=== PATIENT | male | born 1985 | race Hispanic/Latino ===

== ENCOUNTER 2017-07-27 14:04 | Emergency (ER) | payer OTHER, SELFPAY ==
--- NOTE | 2017-07-27 14:56 | RAD REPORT ---
EXAM DESCRIPTION: RAD - Ankle Left 3 View - 07/27/2017 2:49 pm CLINICAL HISTORY: Trauma, foot and ankle pain COMPARISON: None. FINDINGS: Soft tissue swelling is seen about the ankle, greatest laterally. A bony fragment is seen adjacent to the posterior malleolus. This may be a fracture, although age is undetermined. Correlatio n with point tenderness in this location is advised.
[2017-07-27] MEDS ORDERED: IBUPROFEN 400 MG TAB ONE (14:57)
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
[2017-07-27] MEDS ORDERED: HYDROCODONE/APAP 10/325 TAB ONE (16:14)
[2017-07-27 17:32] VITALS: TEMP 98.1; O2SAT 100
[2017-07-27 17:33] VITALS: BP 147/87
== END 2017-07-27 16:39 | disposition home or self-care (01) ==
LOC: ER 14:04
DX: S82.892A Other fracture of left lower leg, initial encounter for closed fracture (principal); V09.9XXA Pedestrian injured in unspecified transport accident, initial encounter; I10 Essential (primary) hypertension
CPT/HCPCS: 99285

== ENCOUNTER 2017-08-30 22:01 | Emergency (ER) | payer OTHER ==
[2017-08-30] MEDS ORDERED: NA CHLORIDE 0.9% 1,000 ML ONE (22:18)
[2017-08-30] MEDS ORDERED: ONDANSETRON 4 MG/2 ML VIAL ONE (22:18)
[2017-08-30 22:33] LABS: Absolute Lymphocytes (CBC) 4.7 K/uL (0.7-4.9); Absolute Monocytes 1.2 K/uL (0.1-1.3); Absolute Neutrophil 12.3 K/uL (1.8-8.0); Basophils % 0.8 % (0-1.3); Eosinophils % 2.2 % (0-4.4); Hematocrit 41.9 % (39.6-49.0); Lymphocytes % 25.1 % (15.3-44.8); MCH 29.9 pg (27.0-35.0); MCV 86.3 fL (80-100); MPV 8.7 fL (7.6-11.3); Monocytes % 6.5 % (3.3-12.3); RBC Red Blood Cell Count 4.86 M/uL (4.33-5.43)
[2017-08-30 22:43] LABS: Protime INR 1.04
[2017-08-30 22:52] LABS: Urine Blood NEGATIVE (NEG); Urine Glucose NEGATIVE (NEG); Urine Protein 2+ (NEG); Urine Specific Gravity 1.025 (1.005-1.030); Urine pH 6.5 (5.0-7.0)
[2017-08-30 22:55] LABS: ALT/SGPT 82 U/L (12-78); AST/SGOT 29 U/L (15-37); Albumin 3.7 g/dL (3.4-5.0); Alkaline Phosphatase 85 U/L (45-117); BUN Blood Urea Nitrogen 14 mg/dL (7-18); Bicarbonate 28 mmol/L (21-32); Bilirubin Direct 0.1 mg/dL (0-0.2); Bilirubin Total 0.6 mg/dL (0.2-1.0); Glucose Level 85 mg/dL (74-106); Potassium 3.3 mmol/L (3.5-5.1); Protein, Total 7.3 g/dL (6.4-8.2); Sodium Level 143 mmol/L (136-145)
[2017-08-30 22:56] LABS: Barbiturates NEGATIVE (NEGATIVE); Benzodiazepines POSITIVE (NEGATIVE); Cocaine NEGATIVE (NEGATIVE); METHAMPHETAM NEGATIVE (NEGATIVE); Methadone NEGATIVE (NEGATIVE); Opiates NEGATIVE (NEGATIVE); Phencyclidine NEGATIVE (NEGATIVE); THC Cannibis NEGATIVE (NEGATIVE)
[2017-08-30 22:56] LABS: Alcohol Serum/Plasma 8 mg/dL (0-3)
--- NOTE | 2017-08-30 23:58 | ER ---
Nurse's Notes [facility] Name: Tom Booth Age: 32 yrs Sex: Male : 1985 Arrival Date: 08/30/2017 Time: 22:02 Bed 2 Private MD: Diagnosis: Abuse of non-psychoactive substances;Vomiting;Hypokalemia Presentation: 08/30 22:03 Presenting complaint: EMS states: Mother called EMS when she was unable to wake up her tl2 son. Pt was able to tell EMS that he took two Somas at home for ankle pain. EMS gave 1 mg IV Narcan and pt started to wake up. Pt AOx3 on arrival to ER but very drowsy and sluggish. Transition of care: patient was not received from another setting of care. Onset of symptoms was August 30, 2017. Risk Assessment: Do you want to hurt yourself or someone else? Patient reports no desire to harm self or others. Initial Sepsis Screen: Does the patient meet any 2 criteria? No. Patient's initial sepsis screen is negative. Does the patient have a suspected source of infection? No. Patient's initial sepsis screen is negative. Care prior to arrival: Medication(s) given: 1 mg Narcan. 22:03 Method Of Arrival: EMS: [facility] tl2 22:03 Acuity: ALFONSO 2 tl2 Triage Assessment: 22:06 General: Appears in no apparent distress. Behavior is drowsy, listless. Pain: Complains tl2 of pain in left lateral ankle Pain does not radiate. Neuro: Level of Consciousness is obeys commands, listless, Oriented to person, place, time, speech is very sluggish. Cardiovascular: Denies chest pain. Respiratory: Airway is patent Respiratory effort is even, unlabored, Respiratory pattern is regular, symmetrical. GI: No signs and/or symptoms were reported involving the gastrointestinal system. : No signs and/or symptoms were reported regarding the genitourinary system. Derm: Skin is pink, warm \T\ dry. Historical: - Allergies: 22:06 No Known Allergies; tl2 - Home Meds: 22:06 metoprolol tartrate 100 mg Oral tab 1 tab 2 times per day [Active]; tl2 - PMHx: 22:06 Hypertension; tl2 - PSHx: 22:06 None; tl2 - Immunization history:: Adult Immunizations up to date. - Social history:: Smoking status: Patient/guardian denies using tobacco. - Ebola Screening: : No symptoms or risks identified at this time. - Family history:: not pertinent. Screenin:10 Abuse screen: Denies threats or abuse. Nutritional screening: No deficits noted. tl2 Tuberculosis screening: No symptoms or risk factors identified. Fall Risk IV access (20 points). Mental Status- Overestimates/Forgets Limitations (15 pts.). Assessment: 22:34 General: see triage assessment. tl2 23:10 Reassessment: Patient appears in no apparent distress at this time. Patient and/or tl2 family updated on plan of care and expected duration. Pain level reassessed. Patient is alert, oriented x 3, equal unlabored respirations, skin warm/dry/pink. Pt is more awake and alert. MD at bedside. 23:59 Reassessment: Patient appears in no apparent distress at this time. Patient and/or tl2 family updated on plan of care and expected duration. Pain level reassessed. Patient is alert, oriented x 3, equal unlabored respirations, skin warm/dry/pink. Vital Signs: 22:06 BP 119 / 70; Pulse 95; Resp 17; Temp 97.7(TE); Pulse Ox 94% on R/A; Weight 108.86 kg; tl2 Height 5 ft. 7 in. (170.18 cm); Pain 4/10; 22:06 Pulse Ox 97% on 2 lpm NC; tl2 23:10 BP 122 / 81; Pulse 79; Resp 19; Pulse Ox 100% on 2 lpm NC; tl2 23:58 BP 117 / 95; Pulse 76; Resp 16; Pulse Ox 100% on R/A; tl2 22:06 Body Mass Index 37.59 (108.86 kg, 170.18 cm) tl2 ED Course: 22:02 Patient arrived in ED. ds1 22:03 Nahomi Martinez RN is Primary Nurse. tl2 22:05 Triage completed. tl2 22:06 Arm band placed on right wrist. tl2 22:10 Patient has correct armband on for positive identification. Bed in low position. Call tl2 light in reach. Side rails up X2. Adult w/ patient. 22:10 Maintain EMS IV. Dressing intact. Good blood return noted. Site clean \T\ dry. Gauge \T\ tl 2 site: 18 g R AC. 22:21 Danis Vilchis MD is Attending Physician. [facility] Administered Medications: 22:19 Drug: Zofran 4 mg Route: IVP; Site: right antecubital; tl2 08/31 00:10 Follow up: Response: No adverse reaction; Nausea is decreased tl2 08/30 22:19 Drug: NS 0.9% 1000 ml Route: IV; Rate: 1 bolus; Site: right antecubital; tl2 08/31 00:07 Drug: Potassium Chloride 20 mEq Route: PO; tl2 00:10 Follow up: Response: No adverse reaction; Medication administered at discharge. tl2 Outcome: 08/30 23:57 Discharge ordered by . brayden 08/31 00:10 Patient left the ED. tl2 Signatures: Danis Vilchis MD MD cha Sanford, Demi ds1 Nahomi Martinez RN RN tl2
--- NOTE | 2017-08-30 23:58 | EDPHYS ---
Physician Documentation [facility] Name: Tom Booth Age: 32 yrs Sex: Male : 1985 Arrival Date: 08/30/2017 Time: 22:02 Bed 2 Private MD: ED Physician Danis Vilchis HPI: 08/30 23:02 This 32 yrs old Male presents to ER via EMS with complaints of Altered Mental brayden Status. 23:02 The patient presents with confusion, decreased mental status. Onset: The brayden symptoms/episode began/occurred just prior to arrival. Possible causes: drug use, soma. Associated signs and symptoms: Pertinent positives: nausea, vomiting. Patient's baseline: Neuro: alert and fully oriented. The patient has not experienced similar symptoms in the past. Historical: - Allergies: 22:06 No Known Allergies; tl2 - Home Meds: 22:06 metoprolol tartrate 100 mg Oral tab 1 tab 2 times per day [Active]; tl2 - PMHx: 22:06 Hypertension; tl2 - PSHx: 22:06 None; tl2 - Immunization history:: Adult Immunizations up to date. - Social history:: Smoking status: Patient/guardian denies using tobacco. - Ebola Screening: : No symptoms or risks identified at this time. - Family history:: not pertinent. ROS: 23:02 Constitutional: Negative for fever, chills, and weight loss, Eyes: Negative for injury, brayden pain, redness, and discharge, ENT: Negative for injury, pain, and discharge, Neck: Negative for injury, pain, and swelling, Cardiovascular: Negative for chest pain, palpitations, and edema, Respiratory: Negative for shortness of breath, cough, wheezing, and pleuritic chest pain, Back: Negative for injury and pain, : Negative for injury, bleeding, discharge, and swelling, MS/Extremity: Negative for injury and deformity, Skin: Negative for injury, rash, and discoloration, Psych: Negative for depression, anxiety, suicide ideation, homicidal ideation, and hallucinations, Allergy/Immunology: Negative for hives, rash, and allergies, Endocrine: Negative for neck swelling, polydipsia, polyuria, polyphagia, and marked weight changes, Hematologic/Lymphatic: Negative for swollen nodes, abnormal bleeding, and unusual bruising. 23:02 Abdomen/GI: Positive for nausea and vomiting. 23:02 Neuro: Positive for altered mental status, weakness. Exam: 23:02 Constitutional: This is a well developed, well nourished patient who is awake, alert, brayden and in no acute distress. Head/Face: Normocephalic, atraumatic. Eyes: Pupils equal round and reactive to light, extra-ocular motions intact. Lids and lashes normal. Conjunctiva and sclera are non-icteric and not injected. Cornea within normal limits. Periorbital areas with no swelling, redness, or edema. ENT: Nares patent. No nasal discharge, no septal abnormalities noted. Tympanic membranes are normal and external auditory canals are clear. Oropharynx with no redness, swelling, or masses, exudates, or evidence of obstruction, uvula midline. Mucous membranes moist. Neck: Trachea midline, no thyromegaly or masses palpated, and no cervical lymphadenopathy. Supple, full range of motion without nuchal rigidity, or vertebral point tenderness. No Meningismus. Chest/axilla: Normal chest wall appearance and motion. Nontender with no deformity. No lesions are appreciated. Cardiovascular: Regular rate and rhythm with a normal S1 and S2. No gallops, murmurs, or rubs. Normal PMI, no JVD. No pulse deficits. Respiratory: Lungs have equal breath sounds bilaterally, clear to auscultation and percussion. No rales, rhonchi or wheezes noted. No increased work of breathing, no retractions or nasal flaring. Abdomen/GI: Soft, non-tender, with normal bowel sounds. No distension or tympany. No guarding or rebound. No evidence of tenderness throughout. Back: No spinal tenderness. No costovertebral tenderness. Full range of motion. Male : Normal genitalia with no discharge or lesions. Skin: Warm, dry with normal turgor. Normal color with no rashes, no lesions, and no evidence of cellulitis. MS/ Extremity: Pulses equal, no cyanosis. Neurovascular intact. Full, normal range of motion. Neuro: Awake and alert, GCS 15, oriented to person, place, time, and situation. Cranial nerves II-XII grossly intact. Motor strength 5/5 in all extremities. Sensory grossly intact. Cerebellar exam normal. Normal gait. Psych: Awake, alert, with orientation to person, place and time. Behavior, mood, and affect are within normal limits. Vital Signs: 22:06 BP 119 / 70; Pulse 95; Resp 17; Temp 97.7(TE); Pulse Ox 94% on R/A; Weight 108.86 kg; tl2 Height 5 ft. 7 in. (170.18 cm); Pain 4/10; 22:06 Pulse Ox 97% on 2 lpm NC; tl2 23:10 BP 122 / 81; Pulse 79; Resp 19; Pulse Ox 100% on 2 lpm NC; tl2 23:58 BP 117 / 95; Pulse 76; Resp 16; Pulse Ox 100% on R/A; tl2 22:06 Body Mass Index 37.59 (108.86 kg, 170.18 cm) tl2 MDM: 22:[address] [facility] 23:02 Data reviewed: vital signs, nurses notes, lab test result(s), EKG. [facility] 08/30 22:17 Order name: Acetaminophen; Complete Time: 23:55 [facility] 08/30 22:17 Order name: BMP; Complete Time: 23:55 [facility] 08/30 22:17 Order name: CBC with Diff; Complete Time: 23:55 [facility] 08/30 22:17 Order name: Ethanol; Complete Time: 23:55 [facility] 08/30 22:17 Order name: Hepatic Function; Complete Time: 23:55 [facility] 08/30 22:17 Order name: Protime (+inr); Complete Time: 23:55 [facility] 08/30 22:17 Order name: Ptt, Activated; Complete Time: 23:55 [facility] 08/30 22:17 Order name: Salicylate; Complete Time: 23:55 [facility] 08/30 22:17 Order name: Urine Drug Screen; Complete Time: 23:55 [facility] 08/30 22:17 Order name: EKG; Complete Time: 22:17 [facility] 08/30 22:49 Order name: Urine Dipstick--Ancillary (enter results); Complete Time: 23:55 [place] 08/30 22:17 Order name: EKG - Nurse/Tech; Complete Time: 22:20 [facility] 08/30 22:17 Order name: IV Saline Lock; Complete Time: 22:20 2 08/30 22:17 Order name: Labs collected and sent; Complete Time: 22:20 [facility] 08/30 22:17 Order name: O2 Per Protocol; Complete Time: 22:20 tl2 08/30 22:17 Order name: O2 Sat Monitoring; Complete Time: 22:20 tl2 08/30 22:17 Order name: Urine Dipstick-Ancillary (obtain specimen); Complete Time: 22:39 tl2 Administered Medications: 22:19 Drug: Zofran 4 mg Route: IVP; Site: right antecubital; tl2 08/31 00:10 Follow up: Response: No adverse reaction; Nausea is decreased tl2 08/30 22:19 Drug: NS 0.9% 1000 ml Route: IV; Rate: 1 bolus; Site: right antecubital; tl2 08/31 00:07 Drug: Potassium Chloride 20 mEq Route: PO; tl2 00:10 Follow up: Response: No adverse reaction; Medication administered at discharge. tl2 Disposition: 08/30/17 23:57 Discharged to Home. Impression: Abuse of non-psychoactive substances, Vomiting, Hypokalemia. - Condition is Stable. - Discharge Instructions: Potassium Content of Foods, Nausea and Vomiting, Polysubstance Abuse, Nausea and Vomiting, [place], Hypokalemia. - Prescriptions for Zofran 4 mg Oral Tablet - take 1 tablet by ORAL route every 12 hours As needed; 6 tablet. - Medication Reconciliation Form, Thank You Letter, Antibiotic Education, Prescription Opioid Use, Work release form form. - Follow up: Private Physician; When: 2 - 3 days; Reason: Recheck today's complaints, Continuance of care, Re-evaluation by your physician. - Problem is new. - Symptoms have improved. Signatures: Dispatcher [employer] EDMA Danis Vilchis MD MD cha Knox, Taylor, RN RN tl2 Corrections: (The following items were deleted from the chart) 08/30 22:19 22:17 Urine Test ordered. tl2 tl2 08/31 00:10 08/30 23:57 08/30/2017 23:57 Discharged to Home. Impression: Abuse of non-psychoactive tl2 substances; Vomiting; Hypokalemia. Condition is Stable. Discharge Instructions: Nausea and Vomiting, Polysubstance Abuse, Nausea and Vomiting, Jhas-or-Xuxi. Prescriptions for Zofran 4 mg Oral Tablet - take 1 tablet by ORAL route every 12 hours As needed; 6 tablet. and Forms are Medication Reconciliation Form, Thank You Letter, Antibiotic Education, Prescription Opioid Use. Follow up: Private Physician; When: 2 - 3 days; Reason: Recheck today's complaints, Continuance of care, Re-evaluation by your physician. Problem is new. Symptoms have improved. brayden
[2017-08-31] MEDS ORDERED: POTASSIUM CL SA 10 MEQ TAB PO ONE (00:05)
[2017-08-31 00:24] VITALS: TEMP 97.7
[2017-08-31 00:25] VITALS: O2SAT 100
[2017-08-31 00:26] VITALS: BP 117/95
--- NOTE | 2017-08-31 10:01 | EKG ---
Test Date: 2017-08-30 Test Time: 22:26:11 Mirror Silverer: JOSR MEASUREMENT RESULTS: Intervals: Rate: 87 GA: 142 QRSD: 90 QT: 354 QTc: 425 [place]: P: 24 GA: 142 QRS: 9 T: -14 INTERPRETIVE STATEMENTS: Normal sinus rhythm Cannot rule out Anterior infarct, age undetermined Abnormal ECG Compared to ECG 03/29/2016 07:09:54 Myocardial infarct finding now present T-wave abnormality no longer present Possible ischemia no longer present Electronically Signed On 08-31-17 09:59:43 CDT by Ty Mcguire
== END 2017-08-31 00:10 | disposition home or self-care (01) ==
LOC: ER 22:01
DX: F55.8 Abuse of other non-psychoactive substances (principal); R11.10 Vomiting, unspecified; E87.6 Hypokalemia; I10 Essential (primary) hypertension
CPT/HCPCS: 36415; 80048; 80076; 80307; 80320; 80329; 81003; 85025; 85610; 85730; 93005; 96374; 99283; J2405; J7030

== ENCOUNTER 2018-04-16 20:05 | Emergency (ER) | payer OTHER ==
[2018-04-16] MEDS ORDERED: OSELTAMIVIR 75 MG CAP ONE (21:59)
[2018-04-16] MEDS ORDERED: AZITHROMYCIN 250 MG TAB ONE (21:59)
--- NOTE | 2018-04-16 22:07 | ER ---
Nurse's Notes [facility] Name: Tom Booth Age: 33 yrs Sex: Male : 1985 Arrival Date: 04/16/2018 Time: 20:11 Bed 5 Private MD: Diagnosis: Influenza due to other identified influenza virus Presentation: 04/16 20:44 Presenting complaint: Patient states: Pt complaining of cough, chills, nasal ea congestion, fever that started Monday. Doxycycline ordered by [facility] took first dose this AM. Transition of care: patient was not received from another setting of care. Onset of symptoms was April 16, 2018. Risk Assessment: Do you want to hurt yourself or someone else? Patient reports no desire to harm self or others. Initial Sepsis Screen: Does the patient meet any 2 criteria? HR > 90 bpm. Does the patient have a suspected source of infection? Yes: Productive cough/pneumonia. Care prior to arrival: Medication(s) given: Motrin, five hours ago. 20:44 Method Of Arrival: Ambulatory ea 20:44 Acuity: ALFONSO 4 ea Triage Assessment: 20:57 General: Appears in no apparent distress. Behavior is calm, cooperative. ak1 Historical: - Allergies: 20:47 Tylenol; ea - Home Meds: 20:47 metoprolol tartrate 100 mg Oral tab 1 tab 2 times per day [Active]; ea - PMHx: 20:47 Hypertension; ea - PSHx: 20:47 None; ea - Immunization history:: Adult Immunizations up to date. - Social history:: Smoking status: Patient/guardian denies using tobacco. - Ebola Screening: : No symptoms or risks identified at this time. - Family history:: not pertinent. Screenin:57 Abuse screen: Denies threats or abuse. Denies injuries from another. Nutritional ak1 screening: No deficits noted. Tuberculosis screening: No symptoms or risk factors identified. Fall Risk None identified. Assessment: 21:28 General: Appears in no apparent distress. Pain: Complains of pain in body aches. Neuro: ak1 No deficits noted. Cardiovascular: Rhythm is sinus tachycardia. Respiratory: Reports shortness of breath cough that is Airway is patent Breath sounds are clear. GI: No signs and/or symptoms were reported involving the gastrointestinal system. : No signs and/or symptoms were reported regarding the genitourinary system. EENT: No signs and/or symptoms were reported regarding the EENT system. Derm: Reports fever. Vital Signs: 20:48 BP 138 / 86; Pulse 140; Resp 20; Temp 99.8(O); Pulse Ox 96% ; Weight 113.4 kg; Height 5 ea ft. 7 in. (170.18 cm); Pain 7/10; 21:51 BP 99 / 60; Pulse 112; Resp 20; Temp 99.8; Pulse Ox 98% on R/A; ak1 20:48 Body Mass Index 39.16 (113.40 kg, 170.18 cm) ea ED Course: 20:11 Patient arrived in ED. am2 20:47 Triage completed. ea 20:54 Kellie Cordova, RN is Primary Nurse. ak1 20:57 Arm band placed on Patient placed in an exam room, on a stretcher, Patient notified of ak1 wait time. 20:59 Patient has correct armband on for positive identification. Bed in low position. Call ak1 light in reach. Side rails up X 1. 21:07 Chest Single View XRAY In Process Unspecified. EDMS 21:10 Farhad Amor MD is Attending Physician. ma2 21:29 Inserted saline lock: 20 gauge in right hand, using aseptic technique. ak1 22:15 No provider procedures requiring assistance completed. IV discontinued, intact, ak1 bleeding controlled, No redness/swelling at site. Pressure dressing applied. Administered Medications: 21:27 Drug: NS 0.9% 1000 ml Route: IV; Rate: 1 bolus; Site: right hand; ak1 22:14 Follow up: IV Status: Completed infusion ak1 21:50 Drug: Tamiflu 75 mg Route: PO; ak1 22:14 Follow up: Response: No adverse reaction ak1 21:51 Drug: AZITHromycin 500 mg Route: PO; ak1 22:14 Follow up: Response: No adverse reaction ak1 Outcome: 22:06 Discharge ordered by . ma2 22:15 Discharged to home ambulatory. ak1 22:15 Condition: good 22:15 Discharge instructions given to patient, Instructed on discharge instructions, follow up and referral plans. no drinking with medication, no driving heavy equipment, medication usage, Demonstrated understanding of instructions, follow-up care, medications, Prescriptions given X 2. 22:31 Patient left the ED. ak1 Signatures: Dispatcher [employer] EDMS Kellie Cordova RN RN ak1 Janell Olmedo am2 Pallavi James RN RN ea Alzahri, Mohammad, MD MD ma2 Corrections: (The following items were deleted from the chart) 20:50 20:44 Presenting complaint: Patient states: Pt complaining of cough, chills, nasal ea congestion, fever that started Monday. nannette
--- NOTE | 2018-04-16 22:07 | EDPHYS ---
Physician Documentation [facility] Name: Tom Booth Age: 33 yrs Sex: Male : 1985 Arrival Date: 04/16/2018 Time: 20:11 Bed 5 Private MD: ED Physician Farhad Amor HPI: 04/16 22:04 This 33 yrs old Male presents to ER via Ambulatory with complaints of Flu ma2 Symptoms, Fever. 22:04 Onset: The symptoms/episode began/occurred gradually, 1 day(s) ago. Associated signs ma2 and symptoms: Pertinent positives: runny nose, sinus congestion, Pertinent negatives: abdominal pain, backache, diarrhea, sinus congestion. Severity of symptoms: At their worst the symptoms were moderate in the emergency department the symptoms are unchanged. Historical: - Allergies: 20:47 Tylenol; ea - Home Meds: 20:47 metoprolol tartrate 100 mg Oral tab 1 tab 2 times per day [Active]; ea - PMHx: 20:47 Hypertension; ea - PSHx: 20:47 None; ea - Immunization history:: Adult Immunizations up to date. - Social history:: Smoking status: Patient/guardian denies using tobacco. - Ebola Screening: : No symptoms or risks identified at this time. - Family history:: not pertinent. ROS: 22:04 Neck: Negative for injury, pain, and swelling, Cardiovascular: Negative for chest pain, ma2 palpitations, and edema, Respiratory: Negative for shortness of breath, cough, wheezing, and pleuritic chest pain, Abdomen/GI: Negative for abdominal pain, nausea, diarrhea, and constipation, MS/Extremity: Negative for injury and deformity, Skin: Negative for injury, rash, and discoloration, Neuro: Negative for headache, weakness, numbness, tingling, and seizure, Psych: Negative for depression, anxiety, suicide ideation, homicidal ideation, and hallucinations. 22:04 Constitutional: Positive for body aches, chills, fatigue, fever, Negative for poor PO intake, weight loss. 22:04 All other systems are negative. Exam: 22:04 Constitutional: This is a well developed, well nourished patient who is awake, alert, ma2 and in no acute distress. Chest/axilla: Normal chest wall appearance and motion. Nontender with no deformity. No lesions are appreciated. Cardiovascular: Regular rate and rhythm with a normal S1 and S2. No gallops, murmurs, or rubs. Normal PMI, no JVD. No pulse deficits. Respiratory: Lungs have equal breath sounds bilaterally, clear to auscultation and percussion. No rales, rhonchi or wheezes noted. No increased work of breathing, no retractions or nasal flaring. Abdomen/GI: Soft, non-tender, with normal bowel sounds. No distension or tympany. No guarding or rebound. No evidence of tenderness throughout. MS/ Extremity: Pulses equal, no cyanosis. Neurovascular intact. Full, normal range of motion. Neuro: Awake and alert, GCS 15, oriented to person, place, time, and situation. Cranial nerves II-XII grossly intact. Motor strength 5/5 in all extremities. Sensory grossly intact. Cerebellar exam normal. Normal gait. Vital Signs: 20:48 BP 138 / 86; Pulse 140; Resp 20; Temp 99.8(O); Pulse Ox 96% ; Weight 113.4 kg; Height 5 ea ft. 7 in. (170.18 cm); Pain 7/10; 21:51 BP 99 / 60; Pulse 112; Resp 20; Temp 99.8; Pulse Ox 98% on R/A; ak1 20:48 Body Mass Index 39.16 (113.40 kg, 170.18 cm) ea MDM: 21:10 Patient medically screened. ma2 22:04 Differential diagnosis: viral Infection, bacterial infection, URI, UTI, ma2 gastroenteritis. Data reviewed: vital signs, nurses notes. Counseling: I had a detailed discussion with the patient and/or guardian regarding: the historical points, exam findings, and any diagnostic results supporting the discharge/admit diagnosis, the presence of at least one elevated blood pressure reading (>120/80) during this emergency department visit, the need for outpatient follow up. Response to treatment: the patient's symptoms have markedly improved after treatment. 04/16 20:50 Order name: Flu ea 04/16 20:51 Order name: Chest Single View XRAY ea Administered Medications: 21:27 Drug: NS 0.9% 1000 ml Route: IV; Rate: 1 bolus; Site: right hand; ak1 22:14 Follow up: IV Status: Completed infusion ak1 21:50 Drug: Tamiflu 75 mg Route: PO; ak1 22:14 Follow up: Response: No adverse reaction ak1 21:51 Drug: AZITHromycin 500 mg Route: PO; ak1 22:14 Follow up: Response: No adverse reaction ak1 Disposition: 04/16/18 22:06 Discharged to Home. Impression: Influenza due to other identified influenza virus. - Condition is Stable. - Discharge Instructions: Influenza, Adult. - Prescriptions for Tramadol 50 mg Oral Tablet - take 1 tablet by ORAL route every 8 hours as needed; 12 tablet. Tamiflu 75 mg Oral Capsule - take 1 tablet by ORAL route every 12 hours for 5 days; 20 tablet. - Work release form, Medication Reconciliation Form, Thank You Letter, Antibiotic Education, Prescription Opioid Use form. - Follow up: Private Physician; When: Tomorrow; Reason: Continuance of care. - Problem is new. - Symptoms are unchanged. Signatures: Dispatcher [employer] EDMS Kellie Cordova RN RN ak1 Pallavi James RN RN ea Alzahri, Mohammad, MD MD ma2 Corrections: (The following items were deleted from the chart) 22:31 22:06 04/16/2018 22:06 Discharged to Home. Impression: Influenza due to other ak1 identified influenza virus. Condition is Stable. Forms are Medication Reconciliation Form, Thank You Letter, Antibiotic Education, Prescription Opioid Use. Follow up: Private Physician; When: Tomorrow; Reason: Continuance of care. Problem is new. Symptoms are unchanged. ma2
[2018-04-16 22:44] VITALS: TEMP 99.8
[2018-04-16 22:45] VITALS: BP 99/60; O2SAT 98
--- NOTE | 2018-04-17 08:22 | RAD REPORT ---
EXAM DESCRIPTION: Mary Single View04/16/2018 9:07 pm CLINICAL HISTORY: Cough COMPARISON: October 2017 FINDINGS: The lungs appear clear of acute infiltrate. The heart is normal size IMPRESSION: No acute abnormalities displayed
== END 2018-04-16 22:31 | disposition home or self-care (01) ==
LOC: ER 20:05
DX: J10.1 Influenza due to other identified influenza virus with other respiratory manifestations (principal); I10 Essential (primary) hypertension; Z88.6 Allergy status to analgesic agent
CPT/HCPCS: 71045; 87804; 96360; 99284

== ENCOUNTER 2019-04-07 22:09 | Emergency (ER) | payer OTHER ==
--- NOTE | 2019-04-07 23:07 | EDPHYS ---
Physician Documentation [facility] Name: Tom Booth Age: 34 yrs Sex: Male : 1985 Arrival Date: 04/07/2019 Time: 22:12 Bed 24 Private MD: ED Physician Farhad Amor HPI: 04/07 23:04 This 34 yrs old Male presents to ER via Ambulatory with complaints of Fall ma2 Injury, Wrist Injury. 23:04 Onset: The symptoms/episode began/occurred suddenly, 1 hour(s) ago. Associated ma2 injuries: The patient sustained left arm. Severity of symptoms: At their worst the symptoms were mild, in the emergency department the symptoms have resolved. The patient has not experienced similar symptoms in the past. Historical: - Allergies: 22:32 Tylenol; mg2 - Home Meds: 22:32 metoprolol tartrate 100 mg Oral tab 1 tab 2 times per day [Active]; mg2 - PMHx: 22:32 Hypertension; mg2 - PSHx: 22:32 None; mg2 - Immunization history:: Flu vaccine is not up to date. - Coronavirus screen:: The patient has NOT traveled to [place] in the past 14 days. Proceed with normal triage process as indicated. - Social history:: Patient/guardian denies using The patient lives with family, Smoking status: Patient denies any tobacco usage or history of. Patient/guardian denies using alcohol, street drugs, IV drugs. - Family history:: not pertinent. - Ebola Screening: : No symptoms or risks identified at this time. ROS: 23:04 Constitutional: Negative for fever, chills, and weight loss. ma2 23:04 All other systems are negative. Exam: 23:04 Constitutional: This is a well developed, well nourished patient who is awake, alert, ma2 and in no acute distress. Chest/axilla: Normal chest wall appearance and motion. Nontender with no deformity. No lesions are appreciated. Cardiovascular: Regular rate and rhythm with a normal S1 and S2. No gallops, murmurs, or rubs. Normal PMI, no JVD. No pulse deficits. Respiratory: Lungs have equal breath sounds bilaterally, clear to auscultation and percussion. No rales, rhonchi or wheezes noted. No increased work of breathing, no retractions or nasal flaring. MS/ Extremity: Pulses equal, no cyanosis. Neurovascular intact. Full, normal range of motion. Neuro: Awake and alert, GCS 15, oriented to person, place, time, and situation. Cranial nerves II-XII grossly intact. Motor strength 5/5 in all extremities. Sensory grossly intact. Cerebellar exam normal. Normal gait. Vital Signs: 22:32 Pulse 85; Resp 18; Temp 98.6; Pulse Ox 100% on R/A; Pain 8/10; mg2 22:50 BP 150 / 102; Weight 115.67 kg; Height 5 ft. 7 in. (170.18 cm); mg2 23:11 BP 145 / 78; Pulse 90; Resp 18; Temp 98; Pulse Ox 100% on R/A; mg2 22:50 Body Mass Index 39.94 (115.67 kg, 170.18 cm) mg2 MDM: 22:22 Patient medically screened. ma2 23:04 Differential diagnosis: abrasion, fracture, multiple trauma, sprain, strain. Data ma2 reviewed: vital signs, EMS record. Counseling: I had a detailed discussion with the patient and/or guardian regarding: the historical points, exam findings, and any diagnostic results supporting the discharge/admit diagnosis, the presence of at least one elevated blood pressure reading (>120/80) during this emergency department visit, the need for outpatient follow up. Response to treatment: the patient's symptoms have markedly improved after treatment. 04/07 22:23 Order name: Forearm Left XRAY [facility] 04/07 22:23 Order name: Wrist Left (3 View) XRAY [facility] 04/07 22:23 Order name: Hand Left 3 View XRAY [facility] 04/07 23:10 Order name: Thumb Spica Splint; Complete Time: 23:10 mg2 Administered Medications: No medications were administered Disposition: 04/07/19 23:06 Discharged to Home. Impression: Pain in left hand. - Condition is Stable. - Discharge Instructions: Musculoskeletal Pain. - Prescriptions for Tramadol 50 mg Oral Tablet - take 1 tablet by ORAL route every 8 hours as needed; 12 tablet. - Medication Reconciliation Form, Thank You Letter, Antibiotic Education, Prescription Opioid Use, Work release form form. - Follow up: Private Physician; When: Tomorrow; Reason: Continuance of care. - Notes: get another hand xray in 2 weeks, to rule out scafoid fracture Signatures: Dispatcher [employer] EDMS Farhad Amor MD MD ma2 Garrison Saab RN RN mg2 Corrections: (The following items were deleted from the chart) 23:19 23:06 04/07/2019 23:06 Discharged to Home. Impression: Pain in left hand. Condition is mg2 Stable. Prescriptions for Tramadol 50 mg Oral Tablet - take 1 tablet by ORAL route every 8 hours as needed; 12 tablet. and Forms are Medication Reconciliation Form, Thank You Letter, Antibiotic Education, Prescription Opioid Use. Follow up: Private Physician; When: Tomorrow; Reason: Continuance of care. ma2
--- NOTE | 2019-04-07 23:07 | ER ---
Nurse's Notes [facility] Name: Tom Booth Age: 34 yrs Sex: Male : 1985 Arrival Date: 04/07/2019 Time: 22:12 Bed 24 Private MD: Diagnosis: Pain in left hand Presentation: 04/07 22:22 Presenting complaint: Presenting complaint: Patient states: i was at [place] [address] today \T\ 1700H when I tripped and fell on my left arm. my left arm is throbbing and cant even move my left hand. 22:30 Transition of care: patient was not received from another setting of care. Onset of mg2 symptoms was April 07, 2019. Risk Assessment: Do you want to hurt yourself or someone else? Patient reports no desire to harm self or others. Initial Sepsis Screen: Does the patient meet any 2 criteria? No. Patient's initial sepsis screen is negative. Does the patient have a suspected source of infection? No. Patient's initial sepsis screen is negative. Care prior to arrival: None. 22:30 Method Of Arrival: Ambulatory mg2 22:30 Acuity: ALFONSO 4 mg2 Historical: - Allergies: 22:32 Tylenol; mg2 - Home Meds: 22:32 metoprolol tartrate 100 mg Oral tab 1 tab 2 times per day [Active]; mg2 - PMHx: 22:32 Hypertension; mg2 - PSHx: 22:32 None; mg2 - Immunization history:: Flu vaccine is not up to date. - Coronavirus screen:: The patient has NOT traveled to [place] in the past 14 days. Proceed with normal triage process as indicated. - Social history:: Patient/guardian denies using The patient lives with family, Smoking status: Patient denies any tobacco usage or history of. Patient/guardian denies using alcohol, street drugs, IV drugs. - Family history:: not pertinent. - Ebola Screening: : No symptoms or risks identified at this time. Screenin:33 Abuse screen: Denies threats or abuse. Denies injuries from another. Nutritional mg2 screening: No deficits noted. Tuberculosis screening: No symptoms or risk factors identified. Fall Risk Fall in past 12 months (25 points). Assessment: 22:33 General: Appears in no apparent distress. comfortable, Behavior is calm, cooperative. mg2 Pain: Complains of pain in left arm Pain currently is 8 out of 10 on a pain scale. Quality of pain is described as aching, Pain began suddenly. Neuro: Level of Consciousness is awake, alert, obeys commands, Oriented to person, place, time, situation. Cardiovascular: Capillary refill < 3 seconds Patient's skin is warm and dry. Respiratory: Airway is patent Respiratory effort is even, unlabored, Respiratory pattern is regular, symmetrical. GI: No signs and/or symptoms were reported involving the gastrointestinal system. : No signs and/or symptoms were reported regarding the genitourinary system. EENT: No signs and/or symptoms were reported regarding the EENT system. Derm: Skin is intact, is healthy with good turgor, Skin is pink, warm \T\ dry. normal. Musculoskeletal: Circulation, motion, and sensation intact. Capillary refill < 3 seconds, Reports pain in left arm. Vital Signs: 22:32 Pulse 85; Resp 18; Temp 98.6; Pulse Ox 100% on R/A; Pain 8/10; mg2 22:50 BP 150 / 102; Weight 115.67 kg; Height 5 ft. 7 in. (170.18 cm); mg2 23:11 BP 145 / 78; Pulse 90; Resp 18; Temp 98; Pulse Ox 100% on R/A; mg2 22:50 Body Mass Index 39.94 (115.67 kg, 170.18 cm) mg2 ED Course: 22:12 Patient arrived in ED. es 22:15 Garrison Saab, GABRIELLA is Primary Nurse. mg2 22:22 Farhad Amor MD is Attending Physician. ma2 22:31 Triage completed. mg2 22:32 Arm band placed on. mg2 22:33 No provider procedures requiring assistance completed. Patient did not have IV access mg2 during this emergency room visit. 22:34 Patient has correct armband on for positive identification. Door closed. Warm blanket mg2 given. 23:10 thumb spica velcro type applied to the left hand. mg2 04/08 01:05 Forearm Left XRAY In Process Unspecified. EDMS 01:05 Wrist Left (3 View) XRAY In Process Unspecified. EDMS 01:05 Hand Left 3 View XRAY In Process Unspecified. EDMS Administered Medications: No medications were administered Outcome: 04/07 23:06 Discharge ordered by . ma2 23:11 Discharged to home ambulatory, with family. mg2 23:11 Condition: stable 23:11 Discharge instructions given to patient, family, Instructed on discharge instructions, follow up and referral plans. medication usage, Demonstrated understanding of instructions, follow-up care, medications, Prescriptions given X 1. 23:19 Patient left the ED. mg2 Signatures: Dispatcher [employer] Delfina Torres Mohammad, MD MD ma2 Garrison Saab RN RN mg2 Corrections: (The following items were deleted from the chart) 22:31 22:22 Presenting complaint: mg2 mg2
--- NOTE | 2019-04-08 07:53 | RAD REPORT ---
EXAM DESCRIPTION: RAD - Wrist Left 3 View - 04/07/2019 11:04 pm CLINICAL HISTORY: Left wrist pain status post injury FINDINGS: No fracture or dislocation is seen. If the patient continues to have symptoms to suggest an occult fracture then a followup plain film se brody in 7 days would be recommended
--- NOTE | 2019-04-08 07:53 | RAD REPORT ---
EXAM DESCRIPTION: RAD - Forearm Left - 04/07/2019 11:04 pm CLINICAL HISTORY: Left forearm pain status post injury FINDINGS: No fracture is seen
--- NOTE | 2019-04-08 07:55 | RAD REPORT ---
EXAM DESCRIPTION: RAD -Hand Left 3 View - 04/07/2019 11:04 pm CLINICAL HISTORY: Left hand pain status post injury FINDINGS: No fracture or dislocation is seen.
== END 2019-04-07 23:19 | disposition home or self-care (01) ==
LOC: ER 22:09
DX: M79.642 Pain in left hand (principal); I10 Essential (primary) hypertension
CPT/HCPCS: 99283

== ENCOUNTER 2019-12-02 16:17 | Emergency (ER) | payer OTHER ==
--- OUTSIDE RECORDS SUMMARY | 2019-12-02 16:19 | XMS REPORT | Continuity of Care Document ---
:1985 Author Organization [facility] t Address [address] [place] [address] Care Team Providers Name Role Phone Radiology Attending Clinician Unavailable Doctor Unassigned, Name Attending Clinician Unavailable Lab, Fam Pob I Attending Clinician Unavailable Problems This patient has no known problems. Allergies, Adverse Reactions, Alerts This patient has no known allergies or adverse reactions. Medications This patient has no known medications. Procedures This patient has no known procedures. Encounters Start End Encounter Admission Attending Care Care Encounter Source Date/Time Date/Time Type Type Clinicians Facility Department ID 2019-11-13 2019-11-13 Hospital Radiology [facility] [id number] 13:44:03 23:59:00 Encounter [place] [id number] [place] [id number] [place] [id number] 2019-11-13 2019-11-13 Orders Doctor HENRY [id number] 00:00:00 00:00:00 Only Unassigned, IRENE [id number] [place] [facility] [id number] 2019-10-08 2019-10-08 Laboratory Lab, Adc [facility] [id number] 07:59:55 08:19:55 Only Fam Pob I Health [id number] [place] [id number] [facility] [phone] [address] [address] 2019-10-08 2019-10-08 Letter Doctor HENRY [id number] 00:00:00 00:00:00 (Out) Unassigned, IRENE [id number] [place] [facility] [id number] Results This patient has no known results.
--- OUTSIDE RECORDS SUMMARY | 2019-12-02 16:19 | XMS REPORT | Summary of Care ---
:1985 Author Organization [facility] - Health Address [address] [place] [address] Care Team Providers Name Role Phone Dasia Girard DO Primary Care Provider Encounter Details Date Type Department Care Team Description 11/13/2019 Orders Only [facility] Doctor Unassigned, No [address] [facility] [place] [address] [address] [place] [address] Allergies Not on Filedocumented as of this encounter (statuses as of 11/13/2019) Medications Not on filedocumented as of this encounter (statuses as of 11/13/2019) Active Problems Not on filedocumented as of this encounter (statuses as of 11/13/2019) Social History Tobacco Use Types Packs/Day Years Used Date Never Assessed Sex Assigned at Date Recorded Not on file COVID-19 Exposure Response Date Recorded In the last month, have you been in contact with No / Unsure 11/13/2019 1:32 PM CDT someone who was confirmed or suspected to have Coronavirus / COVID-19? documented as of this encounter Last Filed Vital Signs Not on filedocumented in this encounter Plan of Treatment Date Type Specialty Care Team Description 11/13/2019 Appointment Radiology Radiology [address] [place] [address] Health Maintenance Due Date Last Done Comments VARICELLA VACCINES (1 of 2 - 1986 2-dose childhood series) Depression Screening 1997 DTaP,Tdap,and Td Vaccines (1 - 02/20/2004 Tdap) INFLUENZA VACCINE (#1) 2019 PNEUMOCOCCAL 0-64 YEARS COMBINED Aged Out No longer eligible based on SERIES patient's age to complete this topic documented as of this encounter Procedures Procedure Name Priority Date/Time Associated Diagnosis Comme nts CONSENT/REFUSAL FOR Routine 11/13/2019 1:39 PM DIAGNOSIS AND TREATMENT CDT ASSIGNMENT OF BENEFITS Routine 11/13/2019 1:39 PM CDT documented in this encounter Results Not on filedocumented in this encounter Insurance Payer Benefit Plan / Subscriber ID Effective Dates Phone Addre ss Type Group [facility] GBR[employer] CLAIMS [id number] Effective for all PPO dates documented as of this encounter
--- OUTSIDE RECORDS SUMMARY | 2019-12-02 16:19 | XMS REPORT | Summary of Care ---
:1985 Author Organization [facility] Address [address] [place] [address] Care Team Providers Name Role Phone Shaji Dasia AGUDELO Primary Care Provider Reason for Visit (Routine) Status Reason Specialty Diagnoses / Procedures Referred By C ontact Referred To Contact Closed Radiology Procedures Branden Stein Adc X-Ray XR CHEST 2 VW [address] XR CHEST 2 VW [place], [place] [address] [place], [place] Phone: [phone] Fax: Encounter Details Date Type Department Care Team Description 11/13/2019 Hospital Encounter [facility] Radiolog y Arrived [facility] [address] [place] [address] [place] [address] Allergies Not on Filedocumented as of this encounter (statuses as of 11/14/2019) Medications Not on filedocumented as of this encounter (statuses as of 11/14/2019) Active Problems Not on filedocumented as of this encounter (statuses as of 11/14/2019) Social History Tobacco Use Types Packs/Day Years [...] filedocumented in this encounter Plan of Treatment Health Maintenance Due Date Last Done Comments VARICELLA VACCINES (1 of 2 - 1986 2-dose childhood series) Depression Screening 1997 DTaP,Tdap,and Td Vaccines (1 - 02/20/2004 Tdap) INFLUENZA VACCINE (#1) 2019 PNEUMOCOCCAL 0-64 YEARS COMBINED Aged Out No longer eligible based on SERIES patient's age to complete this topic documented as of this encounter Procedures Procedure Name Priority Date/Time Associated Diagnosis Comme nts XR CHEST 2 VW Routine 11/13/2019 2:03 PM Bronchitis, not Resu lts for this CDT specified as acute or proced ure are in the chronic results section . documented in this encounter Results XR CHEST 2 VW (11/13/2019 2:03 PM CDT) Specimen Narrative Performed At This result has an attachment that is no t available. HISTORY: Acute or chronic bronchitis. PACS/VR/DOSE TECHNIQUE: 2 PA and one lateral views of the chest are obtained. FINDINGS: No acute pneumonia detected. No pneumothorax or pleural effusion or pulmonary congestion. Small calcified granuloma in the midlung zone noted. Cardiothoracic ratio of approximately 14.5/30.8 cm is consistent with normal cardiac size. CONCLUSIONS: No signs of acute cardiopulmonary disease . Procedure Note [facility], Radiant Results Inft User - 2019 2:15 PM CDT HISTORY: Acute or chronic bronchitis. TECHNIQUE: 2 PA and one lateral views of the chest are obtained. FINDINGS: No acute pneumonia detected. N o pneumothorax or pleural effusion or pulmonary congestion. Small calcified granuloma in the midlung zone noted. Cardiothoracic ratio of approxima tely 14.5/30.8 cm is consistent with normal cardiac size. CONCLUSIONS: No signs of acute cardiopul monary disease. Performing Organization Address City/State/Zipcode Phone Number PACS/VR/DOSE documented in this encounter Visit Diagnoses Diagnosis Bronchitis, not specified as acute or ch ronic documented in this encounter Insurance Payer Benefit Plan / Subscriber ID Effective Dates Phone Addre ss Type Group [facility] GBRP CLAIMS [id number] 2018-Present PPO documented as of this encounter
[2019-12-02] MEDS ORDERED: MAGNESIUM SULFATE 1 gm IVPB 1 GM/100 ML BAG IV ONE (16:40)
[2019-12-02] MEDS ORDERED: LABETALOL 20 MG/4ML SYRINGE IV ONE (16:40)
[2019-12-02 16:49] LABS: Basophils % 0.8 % (0-1.3); Hematocrit 45.1 % (39.6-49.0); Lymphocytes % 25.7 % (15.3-44.8); MPV 8.5 fL (7.6-11.3); RBC Red Blood Cell Count 5.18 M/uL (4.33-5.43)
[2019-12-02 16:52] LABS: Protime INR 1.08
[2019-12-02] MEDS ORDERED: NA CHLORIDE 0.9% 1,000 ML ONE (17:14)
[2019-12-02 17:20] LABS: ALT/SGPT 236 U/L (12-78); AST/SGOT 84 U/L (15-37); Alkaline Phosphatase 83 U/L (45-117); BUN Blood Urea Nitrogen 13 mg/dL (7-18); Bicarbonate 23 mmol/L (21-32); Bilirubin Direct 0.1 mg/dL (0-0.2); Bilirubin Total 0.5 mg/dL (0.2-1.0); Glucose Level 118 mg/dL (74-106); Magnesium 2.6 mg/dL (1.8-2.4); NT PRO-BNP 6 pg/mL (<125); Potassium 3.6 mmol/L (3.5-5.1); Protein, Total 8.2 g/dL (6.4-8.2); Sodium Level 141 mmol/L (136-145); Troponin (Emerg Dept Use Only) < 0.02 ng/mL (0.0-0.045)
--- NOTE | 2019-12-02 17:35 | RAD REPORT ---
EXAM DESCRIPTION: RAD - Chest Single View - 12/02/2019 5:30 pm CLINICAL HISTORY: Cough;Chest pain Chest pain. COMPARISON: Chest Single View dated 04/16/2018; Chest Pa And Lat (2 Views) dated 11/16/2017 FINDINGS: Portable technique limits examination quality. The lungs are grossly clear. The heart is mildly prominent. No displaced fractures. IMPRESSION: No acute intrathoracic process suspected.
[2019-12-02 17:38] LABS: Barbiturates NEGATIVE (NEGATIVE); Benzodiazepines NEGATIVE (NEGATIVE); Cocaine NEGATIVE (NEGATIVE); METHAMPHETAM NEGATIVE (NEGATIVE); Methadone NEGATIVE (NEGATIVE); Opiates NEGATIVE (NEGATIVE); Phencyclidine NEGATIVE (NEGATIVE); THC Cannibis NEGATIVE (NEGATIVE)
--- NOTE | 2019-12-02 18:00 | RAD REPORT ---
EXAM DESCRIPTION: CT - Head Brain Wo Cont - 12/02/2019 5:46 pm CLINICAL HISTORY: Seizure;Syncope COMPARISON: Head Brain Wo Cont dated 03/28/2016; HEAD BRAIN W O CONTRAST dated 07/24/2007 TECHNIQUE: All CT scans are performed using dose optimization technique as appropriate and may inclu de automated exposure control or mA/KV adjustment according to patient size. FINDINGS: No intracranial hemorrhage, hydrocephalus or extra-axial fluid collection.No areas of brai n edema or evidence of midline shift. Small midline 6 mm lipoma is stable and benign. The paranasal sinuses and mastoids are clear. The calvarium is intact. IMPRESSION: No acute intracranial abnormality.
--- NOTE | 2019-12-02 18:32 | EDPHYS ---
Physician Documentation [facility] Name: Tom Booth Age: 34 yrs Sex: Male : 1985 Arrival Date: 12/02/2019 Time: 16:17 Bed 4 Private MD: ED Physician Danis Vilchis HPI: 12/01 16:44 This 34 yrs old Male presents to ER via EMS with complaints of Probable brayden Seizure, High heart rate. 16:44 The patient presents after having a single isolated seizure. Character of seizure(s): brayden Loss of consciousness: it is not known if the patient experienced loss of consciousness, Motor activity: generalized. Seizure onset: just prior to arrival. Context: the seizure(s) was witnessed, by co-worker(s), occurred at work. Seizure Hx: the patient has no previous seizure history. Associated injury: The patient did not suffer any apparent associated injury. EMS care: ADENOSINE 12MG X2. Current symptoms: Currently, the patient is not experiencing any symptoms, the patient feels back to baseline, no decreased level of consciousness, no confusion, no dysphasia, no headache, no paralysis, no visual changes. Historical: - Allergies: 16:23 Tylenol; tw2 - Home Meds: 16:23 metoprolol tartrate 100 mg Oral tab 1 tab 2 times per day [Active]; tw2 - PMHx: 16:23 Hypertension; tw2 - PSHx: 16:23 None; tw2 - Immunization history:: Adult Immunizations. - Social history:: Smoking status: Patient/guardian denies using. - Family history:: not pertinent. ROS: 16:44 Constitutional: Negative for fever, chills, and weight loss, Eyes: Negative for injury, brayden pain, redness, and discharge, ENT: Negative for injury, pain, and discharge, Neck: Negative for injury, pain, and swelling, Respiratory: Negative for shortness of breath, cough, wheezing, and pleuritic chest pain, Abdomen/GI: Negative for abdominal pain, nausea, vomiting, diarrhea, and constipation, Back: Negative for injury and pain, : Negative for injury, bleeding, discharge, and swelling, MS/Extremity: Negative for injury and deformity, Skin: Negative for injury, rash, and discoloration, Psych: Negative for depression, anxiety, suicide ideation, homicidal ideation, and hallucinations, Allergy/Immunology: Negative for hives, rash, and allergies, Endocrine: Negative for neck swelling, polydipsia, polyuria, polyphagia, and marked weight changes, Hematologic/Lymphatic: Negative for swollen nodes, abnormal bleeding, and unusual bruising. 16:44 Cardiovascular: Positive for palpitations. 16:44 Neuro: Positive for seizure activity. Exam: 16:44 Constitutional: This is a well developed, well nourished patient who is awake, alert, brayden and in no acute distress. Head/Face: Normocephalic, atraumatic. Eyes: Pupils equal round and reactive to light, extra-ocular motions intact. Lids and lashes normal. Conjunctiva and sclera are non-icteric and not injected. Cornea within normal limits. Periorbital areas with no swelling, redness, or edema. ENT: Nares patent. No nasal discharge, no septal abnormalities noted. Tympanic membranes are normal and external auditory canals are clear. Oropharynx with no redness, swelling, or masses, exudates, or evidence of obstruction, uvula midline. Mucous membranes moist. Neck: Trachea midline, no thyromegaly or masses palpated, and no cervical lymphadenopathy. Supple, full range of motion without nuchal rigidity, or vertebral point tenderness. No Meningismus. Chest/axilla: Normal chest wall appearance and motion. Nontender with no deformity. No lesions are appreciated. Respiratory: Lungs have equal breath sounds bilaterally, clear to auscultation and percussion. No rales, rhonchi or wheezes noted. No increased work of breathing, no retractions or nasal flaring. Abdomen/GI: Soft, non-tender, with normal bowel sounds. No distension or tympany. No guarding or rebound. No evidence of tenderness throughout. Back: No spinal tenderness. No costovertebral tenderness. Full range of motion. Male : Normal genitalia with no discharge or lesions. Skin: Warm, dry with normal turgor. Normal color with no rashes, no lesions, and no evidence of cellulitis. MS/ Extremity: Pulses equal, no cyanosis. Neurovascular intact. Full, normal range of motion. Neuro: Awake and alert, GCS 15, oriented to person, place, time, and situation. Cranial nerves II-XII grossly intact. Motor strength 5/5 in all extremities. Sensory grossly intact. Cerebellar exam normal. Normal gait. Psych: Awake, alert, with orientation to person, place and time. Behavior, mood, and affect are within normal limits. 16:44 Cardiovascular: Rate: tachycardic, actual rate is 162 bpm, Rhythm: regular, Pulses: Pulses are 4+ in bilateral radial, brachial, femoral, popliteal, posterior tibial and and dorsalis pedis arteries.. Heart sounds: normal, Edema: is not appreciated, JVD: is not appreciated. 16:44 Musculoskeletal/extremity: DVT Exam: No signs of deep vein thrombosis. no pain, no swelling, no tenderness, negative Homans' sign noted on exam, no appreciated bluish discoloration, no erythema, no increased warmth. 16:52 ECG was reviewed by the Attending Physician. [facility] 17:10 ECG was reviewed by the Attending Physician. [facility] Vital Signs: 16:20 BP 142 / 70; Pulse 163; Resp 16; Temp 98.9(O); Pulse Ox 97% on R/A; Weight 117.93 kg tw2 (R); Height 5 ft. 7 in. (170.18 cm) (R); Pain 0/10; 16:24 Pulse 152; tw2 16:30 Pulse Ox 92% on R/A; tw2 16:36 BP 124 / 80; Pulse 106; Resp 15; Pulse Ox 96% on 2 lpm NC; tw2 17:15 BP 128 / 77; Pulse 101; Resp 16; Pulse Ox 98% on R/A; tw2 17:51 BP 110 / 69; Pulse 95; Resp 20; Pulse Ox 99% on R/A; tw2 18:57 BP 114 / 67; Pulse 95; Resp 17; Pulse Ox 98% on R/A; tw2 16:20 Body Mass Index 40.72 (117.93 kg, 170.18 cm) tw2 16:30 placed on o2 at 2L nc, provider notified. tw2 Sharon Coma Score: 16:23 Eye Response: spontaneous(4). Verbal Response: oriented(5). Motor Response: obeys tw2 commands(6). Total: 15. MDM: 16:18 Patient medically screened. [facility] 16:50 Differential diagnosis: drug overdose, cardiac arrhythmia, seizure, TIA. Data reviewed: [facility] vital signs, nurses notes, lab test result(s), EKG, radiologic studies, CT scan, plain films. Data interpreted: environmental monitoring technician: rate is 160 beats/min, rhythm is regular, Pulse oximetry: on room air is 96 %. Test interpretation: by ED physician or midlevel provider: ECG, plain radiologic studies. Counseling: I had a detailed discussion with the patient and/or guardian regarding: the historical points, exam findings, and any diagnostic results supporting the discharge/admit diagnosis, lab results, radiology results. 12/01 16:19 Order name: Basic Metabolic Panel; Complete Time: 17:46 [facility] 12/01 16:19 Order name: CBC with Diff; Complete Time: 17:26 [facility] 12/01 16:19 Order name: LFT's; Complete Time: 17:46 [facility] 12/01 16:19 Order name: Magnesium; Complete Time: 17:46 [facility] 12/01 16:19 Order name: NT PRO-BNP; Complete Time: 17:46 [facility] 12/01 16:19 Order name: Troponin (emerg Dept Use Only); Complete Time: 17:46 [facility] 12/01 16:19 Order name: TSH; Complete Time: 17:46 [facility] 12/01 16:19 Order name: Acetaminophen; Complete Time: 17:46 [facility] 12/01 16:19 Order name: ETOH Level; Complete Time: 17:26 [facility] 12/01 16:19 Order name: PT-INR; Complete Time: 17:26 [facility] 12/01 16:19 Order name: Ptt, Activated; Complete Time: 17:26 [facility] 12/01 16:19 Order name: Salicylate; Complete Time: 17:46 [facility] 12/01 16:19 Order name: Urine Drug Screen; Complete Time: 17:46 [facility] 12/01 16:37 Order name: Glucose, Ancillary Testing; Complete Time: 16:44 EDMS 12/01 16:19 Order name: XRAY Chest (1 view); Complete Time: 17:46 [facility] 12/01 16:19 Order name: EKG; Complete Time: 16:21 [facility] 12/01 16:19 Order name: Cardiac monitoring; Complete Time: 16:26 [facility] 12/01 16:19 Order name: EKG - Nurse/Tech; Complete Time: 16:26 [facility] 12/01 16:19 Order name: IV Saline Lock; Complete Time: 16:26 [facility] 12/01 16:19 Order name: Labs collected and sent; Complete Time: 16:26 [facility] 12/01 16:19 Order name: O2 Per Protocol; Complete Time: 16:26 [facility] 12/01 16:19 Order name: O2 Sat Monitoring; Complete Time: 16:26 [facility] 12/01 16:52 Order name: EKG; Complete Time: 16:52 [facility] 12/01 17:26 Order name: CT Head Brain wo Cont; Complete Time: 18:30 [facility] 12/01 18:38 Order name: Urine Dipstick--Ancillary (enter results) 12/01 16:19 Order name: Urine Dipstick-Ancillary (obtain specimen); Complete Time: 17:14 [facility] 12/01 16:52 Order name: EKG - Nurse/Tech; Complete Time: 17:07 [facility] EC:52 Rate is 156 beats/min. Rhythm is regular. QRS [place] is Normal. FL interval is normal. [facility] QRS interval is normal. QT interval is normal. No Q waves. T waves are Normal. No ST changes noted. Clinical impression: Sinus tachycardia. Interpreted by me. Reviewed by me. 17:10 Rate is 106 beats/min. Rhythm is regular. QRS [place] is Normal. FL interval is normal. [facility] QRS interval is normal. QT interval is normal. No Q waves. T waves are Normal. No ST changes noted. Clinical impression: Sinus tachycardia. Interpreted by me. Reviewed by me. Administered Medications: 16:22 CANCELLED (Duplicate Order): Lopressor 5 mg IVP once; Hold for SBP <100 or HR <60. [facility] 16:28 Drug: Trandate 20 mg Route: IVP; Site: right antecubital; tw2 17:07 Follow up: Response: No adverse reaction; Other; Other, HR lowered. tw2 16:34 Drug: Magnesium Sulfate 1 grams Route: IVPB; Infused Over: 1 hrs; Site: right tw2 antecubital; 17:39 Follow up: Response: No adverse reaction; IV Status: Completed infusion tw2 17:07 Drug: NS 0.9% 1000 ml Route: IV; Rate: 1 bolus; Site: right antecubital; tw2 18:57 Follow up: Response: No adverse reaction; IV Status: Completed infusion; IV Intake: tw2 1000ml 18:57 Not Given (pt discharged): NS 0.9% 1000 ml IV at 125 ml/hr continuous tw2 Disposition: 12/02/19 18:32 Discharged to Home. Impression: Syncope and collapse - NEAR, Weakness - SEIZURE LIKE ACTIVITY, Elevated white blood cell count, Tachycardia, unspecified. - Condition is Stable. - Discharge Instructions: Near-Syncope, Nonepileptic Seizures, Seizure, Adult, Weakness, Fatigue, Seizure, Adult, Jecx-go-Xqvp, Weakness, Gqcs-ej-Chnu, Aspirin and Your Heart, Vasovagal Syncope, Adult. - Prescriptions for Toprol XL 25 mg Oral Tablet - take 1 tablet by ORAL route once daily; 20 tablet. - Medication Reconciliation Form, Thank You Letter, Antibiotic Education, Prescription Opioid Use, Work release form form. - Follow up: Private Physician; When: 2 - 3 days; Reason: Recheck today's complaints, Continuance of care, Re-evaluation by your physician. Follow up: Hector Cazares; When: 2 - 3 days; Reason: Recheck today's complaints, Continuance of care, Re-evaluation by your physician. Follow up: Ty Mcguire MD; When: 2 - 3 days; Reason: Recheck today's complaints, Re-evaluation by your physician. - Problem is new. - Symptoms have improved. Signatures: Dispatcher [employer] EDWV Danis Vilchis MD MD cha Wise, Tara RN RN tw2 Corrections: (The following items were deleted from the chart) 16:22 16:19 Lopressor 5 mg IVP once; Hold for SBP <100 or HR <60. ordered. brayden owen 18:32 18:32 12/02/2019 18:32 Discharged to Home. Impression: Syncope and collapse - NEAR; brayden Weakness - SEIZURE LIKE ACTIVITY; Elevated white blood cell count; Tachycardia, unspecified. Condition is Stable. Discharge Instructions: Near-Syncope, Nonepileptic Seizures, Seizure, Adult, Weakness, Fatigue, Seizure, Adult, Qhkx-jw-Pvev, Weakness, Xmbg-wq-Ddbw, Vasovagal Syncope, Adult. Forms are Medication Reconciliation Form, Thank You Letter, Antibiotic Education, Prescription Opioid Use. Follow up: Private Physician; When: 2 - 3 days; Reason: Recheck today's complaints, Continuance of care, Re-evaluation by your physician. Follow up: Hector Cazares; When: 2 - 3 days; Reason: Recheck today's complaints, Continuance of care, Re-evaluation by your physician. Problem is new. Symptoms have improved. [facility] 19:14 18:32 12/02/2019 18:32 Discharged to Home. Impression: Syncope and collapse - NEAR; tw2 Weakness - SEIZURE LIKE ACTIVITY; Elevated white blood cell count; Tachycardia, unspecified. Condition is Stable. Discharge Instructions: Near-Syncope, Nonepileptic Seizures, Seizure, Adult, Weakness, Fatigue, Seizure, Adult, Tklx-cn-Xlow, Weakness, Gpfv-ck-Reuo, Vasovagal Syncope, Adult. Forms are Medication Reconciliation Form, Thank You Letter, Antibiotic Education, Prescription Opioid Use. Follow up: Private Physician; When: 2 - 3 days; Reason: Recheck today's complaints, Continuance of care, Re-evaluation by your physician. Follow up: Hector Cazares; When: 2 - 3 days; Reason: Recheck today's complaints, Continuance of care, Re-evaluation by your physician. Follow up: Ty Mcguire; When: 2 - 3 days; Reason: Recheck today's complaints, Re-evaluation by your physician. Problem is new. Symptoms have improved. brayden
--- NOTE | 2019-12-02 18:32 | ER ---
Nurse's Notes [facility] Name: Tom Booth Age: 34 yrs Sex: Male : 1985 Arrival Date: 12/02/2019 Time: 16:17 Bed 4 Private MD: Diagnosis: Syncope and collapse-NEAR;Weakness-SEIZURE LIKE ACTIVITY;Elevated white blood cell count;Tachycardia, unspecified Presentation: 12/01 16:20 Chief complaint: EMS states: pt was at work and found in his truck by a co-worker, he tw2 was found convulsing in truck, when we arrived it was standing outside of his truck, we did EKG, noted SVT HR 178, we gave 24 mg Adenosine, did not convert, HR still 170's, Hx: HTN, takes Metoprolol, NKDA. Coronavirus screen: At this time, the client does not indicate any symptoms associated with coronavirus-19. Ebola Screen: Patient denies travel to an Ebola-affected area in the 21 days before illness onset. Initial Sepsis Screen: Does the patient meet any 2 criteria? HR > 90 bpm. No. Patient's initial sepsis screen is negative. Does the patient have a suspected source of infection? No. Patient's initial sepsis screen is negative. Risk Assessment: Do you want to hurt yourself or someone else? Patient reports no desire to harm self or others. Note provider at bedside at this time. Onset of symptoms was December 02, 2019. 16:20 Acuity: ALFONSO 2 tw2 16:20 Method Of Arrival: EMS: [facility] tw2 Triage Assessment: 16:23 General: Appears in no apparent distress. obese, Behavior is calm, cooperative, tw2 appropriate for age. General: pt states "man i just want to go home and get out of here". Pain: Denies pain. Neuro: Level of Consciousness is awake, alert, obeys commands. Historical: - Allergies: 16:23 Tylenol; tw2 - Home Meds: 16:23 metoprolol tartrate 100 mg Oral tab 1 tab 2 times per day [Active]; tw2 - PMHx: 16:23 Hypertension; tw2 - PSHx: 16:23 None; tw2 - Immunization history:: Adult Immunizations. - Social history:: Smoking status: Patient/guardian denies using. - Family history:: not pertinent. Screenin:24 Abuse screen: Denies threats or abuse. Nutritional screening: No deficits noted. tw2 Tuberculosis screening: No symptoms or risk factors identified. Fall Risk None identified. Assessment: 16:20 General: Appears in no apparent distress. obese, Behavior is calm, cooperative, tw2 appropriate for age. Pain: Denies pain. Neuro: Level of Consciousness is awake, alert, obeys commands, Oriented to person, place, time, situation. Cardiovascular: Heart tones S1 S2 Patient's skin is warm and dry. Respiratory: Airway is patent Respiratory effort is even, unlabored, Respiratory pattern is regular, symmetrical, Breath sounds are clear bilaterally. GI: No signs and/or symptoms were reported involving the gastrointestinal system. Abdomen is round non-distended, obese, Bowel sounds present X 4 quads. : No signs and/or symptoms were reported regarding the genitourinary system. EENT: Reports "i did bite my tongue when it happened". Derm: No signs and/or symptoms reported regarding the dermatologic system. Musculoskeletal: Range of motion: intact in all extremities. 17:15 Reassessment: Patient appears in no apparent distress at this time. No changes from tw2 previously documented assessment. Patient and/or family updated on plan of care and expected duration. Pain level reassessed. Patient is alert, oriented x 3, equal unlabored respirations, skin warm/dry/pink. 17:15 Reassessment: xray at bedside at this time. tw2 17:42 Reassessment: pt transported to CT via stretcher at this time. tw2 17:51 Reassessment: Patient appears in no apparent distress at this time. No changes from tw2 previously documented assessment. Patient and/or family updated on plan of care and expected duration. Pain level reassessed. Patient is alert, oriented x 3, equal unlabored respirations, skin warm/dry/pink. pt back from CT at this time. 18:57 Reassessment: Patient appears in no apparent distress at this time. No changes from tw2 previously documented assessment. Patient and/or family updated on plan of care and expected duration. Pain level reassessed. Patient is alert, oriented x 3, equal unlabored respirations, skin warm/dry/pink. 19:14 Reassessment: Patient appears in no apparent distress at this time. No changes from tw2 previously documented assessment. Patient and/or family updated on plan of care and expected duration. Pain level reassessed. Patient is alert, oriented x 3, equal unlabored respirations, skin warm/dry/pink. Vital Signs: 16:20 BP 142 / 70; Pulse 163; Resp 16; Temp 98.9(O); Pulse Ox 97% on R/A; Weight 117.93 kg tw2 (R); Height 5 ft. 7 in. (170.18 cm) (R); Pain 0/10; 16:24 Pulse 152; tw2 16:30 Pulse Ox 92% on R/A; tw2 16:36 BP 124 / 80; Pulse 106; Resp 15; Pulse Ox 96% on 2 lpm NC; tw2 17:15 BP 128 / 77; Pulse 101; Resp 16; Pulse Ox 98% on R/A; tw2 17:51 BP 110 / 69; Pulse 95; Resp 20; Pulse Ox 99% on R/A; tw2 18:57 BP 114 / 67; Pulse 95; Resp 17; Pulse Ox 98% on R/A; tw2 16:20 Body Mass Index 40.72 (117.93 kg, 170.18 cm) tw2 16:30 placed on o2 at 2L nc, provider notified. tw2 Hamilton Coma Score: 16:23 Eye Response: spontaneous(4). Verbal Response: oriented(5). Motor Response: obeys tw2 commands(6). Total: 15. ED Course: 16:17 Patient arrived in ED. aa5 16:17 Placed in gown. Bed in low position. Adult w/ patient. Call light in reach. Cardiac tw2 monitor on. Pulse ox on. NIBP on. 16:18 Danis Vilchis MD is Attending Physician. brayden 16:22 Triage completed. tw2 16:24 Arm band placed on. tw2 16:25 Lanette Bolivar RN is Primary Nurse. tw2 16:34 Inserted saline lock: 20 gauge in left wrist, using aseptic technique. em1 16:34 Maintain EMS IV. Dressing intact. Good blood return noted. Site clean \\T\\ dry. Gauge \\T\\ tw 2 site: 18 g RIGHT ac. 16:43 Seizure precautions initiated. tw2 17:15 Urine Drug Screen Sent. tw2 17:30 XRAY Chest (1 view) In Process Unspecified. EDMS 17:46 CT Head Brain wo Cont In Process Unspecified. EDMS 18:31 Hector Cazares MD is Referral Physician. brayden 18:32 Ty Mcguire MD is Referral Physician. brayden 19:13 No provider procedures requiring assistance completed. IV discontinued, intact, tw2 bleeding controlled, No redness/swelling at site. Pressure dressing applied, x2. Administered Medications: 16:22 CANCELLED (Duplicate Order): Lopressor 5 mg IVP once; Hold for SBP <100 or HR <60. brayden 16:28 Drug: Trandate 20 mg Route: IVP; Site: right antecubital; tw2 17:07 Follow up: Response: No adverse reaction; Other; Other, HR lowered. tw2 16:34 Drug: Magnesium Sulfate 1 grams Route: IVPB; Infused Over: 1 hrs; Site: right tw2 antecubital; 17:39 Follow up: Response: No adverse reaction; IV Status: Completed infusion tw2 17:07 Drug: NS 0.9% 1000 ml Route: IV; Rate: 1 bolus; Site: right antecubital; tw2 18:57 Follow up: Response: No adverse reaction; IV Status: Completed infusion; IV Intake: tw2 1000ml 18:57 Not Given (pt discharged): NS 0.9% 1000 ml IV at 125 ml/hr continuous tw2 Intake: 18:57 IV: 1000ml; Total: 1000ml. tw2 Outcome: 18:32 Discharge ordered by . brayden 19:14 Discharged to home ambulatory, with family. tw2 19:14 Condition: stable 19:14 Discharge instructions given to patient, family, Instructed on discharge instructions, follow up and referral plans. medication usage, Demonstrated understanding of instructions, follow-up care, medications, Prescriptions given X 1. 19:14 Patient left the ED. tw2 Signatures: Dispatcher [employer] EDKS Danis Vilchis MD MD cha Martinez, Eric em1 Josiane Duke, RN RN aa5 Lanette Bolivar RN RN tw2
[2019-12-02 19:26] LABS: Urine Blood TRACE (NEG); Urine Glucose NEGATIVE (NEG); Urine Protein 2+ (NEG); Urine Specific Gravity >1.030 (1.005-1.030); Urine pH 5.5 (5.0-7.0)
[2019-12-02 20:00] VITALS: TEMP 98.9
[2019-12-02 20:10] VITALS: BP 114/67; O2SAT 98
--- NOTE | 2019-12-04 07:17 | EKG ---
Test Date: 2019-12-02 Test Time: 17:08:14 Education Associate: SUZETTE MEASUREMENT RESULTS: Intervals: Rate: 106 MA: 138 QRSD: 92 QT: 340 QTc: 451 [place]: P: 48 MA: 138 QRS: 77 T: -3 INTERPRETIVE STATEMENTS: Sinus tachycardia Abnormal QRS-T angle, consider primary T wave abnormality Abnormal ECG Compared to ECG 08/30/2017 22:26:11 T-wave abnormality now present Sinus rhythm no longer present Myocardial infarct finding no longer present Electronically Signed On 12-04-19 07:15:05 CDT by Ty Mcguire
--- NOTE | 2019-12-04 07:18 | EKG ---
Test Date: 2019-12-02 Test Time: 16:18:41 Motorboat Mechanic Helper: KIT MEASUREMENT RESULTS: Intervals: Rate: 156 AK: 118 QRSD: 80 QT: 258 QTc: 415 [place]: P: 48 AK: 118 QRS: 105 T: -3 INTERPRETIVE STATEMENTS: Sinus tachycardia Rightward axis T wave abnormality, consider inferior ischemia Abnormal ECG Compared to ECG 08/30/2017 22:26:11 Right-axis deviation now present T-wave abnormality now present Possible ischemia now present Sinus rhythm no longer present Myocardial infarct finding no longer present Electronically Signed On 12-04-19 07:15:11 CDT by Ty Mcguire
== END 2019-12-02 19:14 | disposition home or self-care (01) ==
LOC: ER 16:17
DX: R53.1 Weakness (principal); D72.829 Elevated white blood cell count, unspecified; R00.0 Tachycardia, unspecified; I10 Essential (primary) hypertension; Z88.6 Allergy status to analgesic agent
CPT/HCPCS: 96365; 96361; 93005 ×2; 85025; 80048; 36415; 80320; 83735; 80329 ×2; 85610; 82947; 80076; 80307 ×8; 85730; 84443; 81003; 84484; 83880; 70450; 71045; 96375; 99285; J3475; J7030

== ENCOUNTER 2020-05-23 20:34 | Emergency (ER) | payer OTHER ==
--- OUTSIDE RECORDS SUMMARY | 2020-05-23 20:37 | XMS REPORT | Continuity of Care Document ---
:1985 Author Organization [facility] t Address [address] [place] [address] Care Team Providers Name Role Phone Doctor Unassigned, Name Attending Clinician Unavailable Radiology Attending Clinician Unavailable Lab, Fam Pob I Attending Clinician Unavailable Problems This patient has no known problems. Allergies, Adverse Reactions, Alerts This patient has no known allergies or adverse reactions. Medications This patient has no known medications. Procedures This patient has no known procedures. Encounters Start End Encounter Admission Attending Care Care Encounter Source Date/Time Date/Time Type Type Clinicians Facility Department ID 2019-12-06 2019-12-06 Orders Doctor HENRY [id number] 00:00:00 00:00:00 Only UnassignedIRENE [id number] [place] [id number] 2019-11-13 2019-11-13 [facility] Radiology [facility] [id number] 13:44:03 23:59:00 Encounter Oscar [id number] [place] [id number] [place] [id number] 2019-11-13 2019-11-13 Orders Doctor HENRY [id number] 00:00:00 00:00:00 Only UnassignedIRENE [id number] [place] [id number] 2019-10-08 2019-10-08 Laboratory Lab, [facility] [id number] 07:59:55 08:19:55 Only Fam Pob I Health [id number] [place] [id number] [employer] [phone] [address] [address] 2019-10-08 2019-10-08 Letter Doctor ELAINE [id number] 00:00:00 00:00:00 (Out) Unassigned, IRENE [id number] [facility] [id number] Results This patient has no known results.
[2020-05-23] MEDS ORDERED: NA CHLORIDE 0.9% 1,000 ML ONE ×2 (21:27→22:44)
[2020-05-23 21:32] LABS: Absolute Lymphocytes (CBC) 2.8 K/uL (0.7-4.9); Basophils % 0.4 % (0-1.3); Hematocrit 43.8 % (39.6-49.0); Lymphocytes % 12.8 % (15.3-44.8); MPV 8.4 fL (7.6-11.3); RBC Red Blood Cell Count 5.03 M/uL (4.33-5.43)
[2020-05-23 21:40] LABS: Protime INR 1.08
[2020-05-23 21:53] LABS: Barbiturates NEGATIVE (NEGATIVE); Benzodiazepines NEGATIVE (NEGATIVE); Cocaine NEGATIVE (NEGATIVE); METHAMPHETAM NEGATIVE (NEGATIVE); Methadone NEGATIVE (NEGATIVE); Opiates NEGATIVE (NEGATIVE); Phencyclidine NEGATIVE (NEGATIVE); THC Cannibis NEGATIVE (NEGATIVE)
[2020-05-23 22:01] LABS: ALT/SGPT 195 U/L (12-78); AST/SGOT 82 U/L (15-37); Albumin 3.9 g/dL (3.4-5.0); Alkaline Phosphatase 82 U/L (45-117); BUN Blood Urea Nitrogen 14 mg/dL (7-18); Bicarbonate 22 mmol/L (21-32); Bilirubin Direct 0.1 mg/dL (0-0.2); Bilirubin Total 0.4 mg/dL (0.2-1.0); Glucose Level 107 mg/dL (74-106); Potassium 3.4 mmol/L (3.5-5.1); Protein, Total 8.1 g/dL (6.4-8.2); Sodium Level 142 mmol/L (136-145)
[2020-05-23 23:30] LABS: Blood Morphology Comment NOT SEEN (NOT SEEN); Platelet Estimate ADEQ
--- NOTE | 2020-05-24 00:05 | ER ---
Nurse's Notes 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 Vomiting in triage, got diaphoretic and pale. Brought back to room 4, verbalized feeling better when positioned supine in bed. Had a 1 previous seizure episode in Nov 2019, had follow up and was cleared. Coronavirus screen: Client denies travel out of the [place] in the last 14 days. vomiting. Client presents with at least one sign or symptom that may indicate coronavirus-19. Standard/surgical mask placed on the client. Provider contacted for isolation considerations. Ebola Screen: Patient negative for fever greater than or equal to 101.5 degrees Fahrenheit, and additional compatible Ebola Virus Disease symptoms Patient denies exposure to infectious person. Patient denies travel to an Ebola-affected area in the 21 days before illness onset. No symptoms or risks identified at this time. Initial Sepsis Screen: Does the patient meet any 2 criteria? No. Patient's initial sepsis screen is negative. Does the patient have a suspected source of infection? No. Patient's initial sepsis screen is negative. Risk Assessment: Do you want to hurt yourself or someone else? Patient reports no desire to harm self or others. Onset of symptoms was May 23, 2020. Historical: - Allergies: 21:05 Tylenol; ca1 - PMHx: 21:05 Hypertension; ca1 - PSHx: 21:05 None; ca1 - Immunization history:: Flu vaccine is not up to date. - Social history:: Smoking status: Patient denies any tobacco usage or history of. Screenin:30 Abuse screen: Denies threats or abuse. Denies injuries from another. Nutritional lp1 screening: No deficits noted. Tuberculosis screening: No symptoms or risk factors identified. Fall Risk None identified. Total Cook Fall Scale indicates High Risk Score (45 or more points). Fall prevention measures have been instituted. Side Rails Up X 2 Family Present and informed to notify staff if the need to leave the bedside As available patient and family educated on Fall Prevention Program and Strategies. Assessment: 21:00 General: Appears in no apparent distress. Behavior is appropriate for age. Pain: lp1 Complains of pain in back of neck Pain currently is 2 out of 10 on a pain scale. Quality of pain is described as aching. Neuro: Level of Consciousness is awake, alert, obeys commands, Oriented to person, place, time, situation, Gait is steady, Speech is normal, Pupils are PERRLA. Cardiovascular: Patient's skin is warm and dry. Respiratory: Airway is patent Respiratory effort is even, unlabored, Respiratory pattern is regular. GI: Patient currently denies nausea. : No signs and/or symptoms were reported regarding the genitourinary system. EENT: No signs and/or symptoms were reported regarding the EENT system. Derm: Skin is pink, warm \T\ dry. Musculoskeletal: No deficits noted. 21:30 Reassessment: Patient appears in no apparent distress at this time. Returned from CT, lp1 appears in no discomfort, denies any complaints at this time. Neuro: Level of Consciousness is awake, alert, obeys commands. 22:30 Reassessment: Patient appears in no apparent distress at this time. Patient is alert, lp1 oriented x 3, equal unlabored respirations, skin warm/dry/pink. Expresses readiness for discharge. 22:45 Reassessment: JANE Stanton at bedside to discuss results with patient and , lp1 demonstrates understanding. 23:35 Reassessment: Patient appears in no apparent distress at this time. Patient is alert, lp1 oriented x 3, equal unlabored respirations, skin warm/dry/pink. Patient ambulated independently to bathroom, steady gait noted. Vital Signs: 20:53 BP 118 / 58 Supine; Pulse 127; Resp 18 S; Temp 97.6(TE); Pulse Ox 97% on R/A; Weight ca1 113.4 kg (R); Height 5 ft. 7 in. (170.18 cm) (R); 21:00 BP 115 / 74; Pulse 127; Resp 18; Pulse Ox 96% on R/A; lp1 21:36 BP 121 / 60; Pulse 108; Resp 19; Pulse Ox 97% on R/A; lp1 22:30 BP 121 / 54; Pulse 90; Resp 19; Pulse Ox 99% on R/A; Pain 0/10; lp1 23:30 BP 146 / 86; Pulse 88; Resp 14; Pulse Ox 99% on R/A; Pain 0/10; lp1 20:53 Body Mass Index 39.16 (113.40 kg, 170.18 cm) ca1 Vel Coma Score: 21:05 Eye Response: spontaneous(4). Verbal Response: oriented(5). Motor Response: obeys ca1 commands(6). Total: 15. ED Course: 20:35 Patient arrived in ED. cf2 20:46 Triage completed. ca1 20:56 Maximino Jara NP is PHCP. pm1 20:56 Bob Reza MD is Attending Physician. pm1 21:05 Arm band placed on right wrist. ca1 21:09 Anel Martínez, GABRIELLA is Primary Nurse. lp1 21:10 Patient has correct armband on for positive identification. Placed in gown. Bed in low lp1 position. Call light in reach. mold maker on. Pulse ox on. NIBP on. 21:15 Seizure precautions initiated. lp1 21:20 Inserted saline lock: 22 gauge in right hand, using aseptic technique. Blood collected. lp1 21:37 Notified Nurse Practitioner and/or Physician Brass Buffer of a critical lab result(s), WBC lp1 21.7. 21:40 CT Head C Spine In Process Unspecified. EDMS 22:50 Chest Single View XRAY In Process Unspecified. EDMS 05/24 00:17 No provider procedures requiring assistance completed. IV discontinued, No lp1 redness/swelling at site. Pressure dressing applied. Administered Medications: 05/23 21:36 Drug: NS 0.9% 1000 ml Route: IV; Rate: 1000 ml; Site: right hand; lp1 22:45 Follow up: IV Status: Completed infusion; IV Intake: 1000ml lp1 22:33 Drug: NS 0.9% 1000 ml Route: IV; Rate: 1000 ml; Site: right hand; lp1 05/24 00:17 Follow up: IV Status: Completed infusion; IV Intake: 1000ml lp1 Intake: 05/23 22:45 IV: 1000ml; Total: 1000ml. lp1 05/24 00:17 IV: 1000ml; Total: 2000ml. lp1 Outcome: 00:05 Discharge ordered by . pm1 00:17 Discharged to home ambulatory, with significant other. lp1 00:17 Condition: good 00:17 Discharge instructions given to patient, significant other, Instructed on discharge instructions, follow up and referral plans. Demonstrated understanding of instructions, follow-up care. 00:18 Patient left the ED. lp1 Signatures: Dispatcher [employer] EDMS Anel Martínez RN RN lp1 Maximino Jara, SUPERINTENDENT JOB SUPERINTENDENT JOB pm1 Jess Pina RN RN ca1 Garrick Arthur cf2
--- NOTE | 2020-05-24 00:05 | EDPHYS ---
Physician Documentation [facility] Name: Tom Booth Age: 35 yrs Sex: Male : 1985 Arrival Date: 05/23/2020 Time: 20:35 Bed 4 Private MD: ED Physician Bob Reza HPI: 05/23 21:06 This 35 yrs old Male presents to ER via Wheelchair with complaints of Seizure, pm1 Fall Injury, Head Injury Without LOC-Adult. 21:06 The patient presents after having a possible seizure episode, no post-ictal period is pm1 described, possibly syncopal episode versus seizure, the episode(s) was witnessed, by family, . Character of seizure(s): Loss of consciousness: the patient did not lose consciousness, Motor activity: None, Incontinence: none, Apnea: the patient did not experience apnea, Circulation: the patient did not experience evidence of pulse disturbance. Seizure onset: today. Context: the seizure(s) was witnessed, by family, , occurred at a store, occurred while the patient was standing, Contributing factors: Did not eat or drink much today and drank ETOH earlier in the day with friends. Seizure Hx: once in November of last year. Seen in the ER for that possible seizure and has followed up with neurology. Tests performed and was not diagnosed with seizures. Associated injury: Head/face: right occipital area, contusion. Current symptoms: Currently, the patient is not experiencing any symptoms. The patient has experienced a previous episode, approximately 5 months ago. Historical: - Allergies: 21:05 Tylenol; ca1 - PMHx: 21:05 Hypertension; ca1 - PSHx: 21:05 None; ca1 - Immunization history:: Flu vaccine is not up to date. - Social history:: Smoking status: Patient denies any tobacco usage or history of. ROS: 21:06 Constitutional: Negative for fever, chills, and weight loss. pm1 21:06 Cardiovascular: Negative for chest pain, palpitations, and edema, Respiratory: Negative for shortness of breath, cough, wheezing, and pleuritic chest pain, Abdomen/GI: Negative for abdominal pain, nausea, vomiting, diarrhea, and constipation, Back: Negative for injury and pain, MS/Extremity: Negative for injury and deformity, Skin: Negative for injury, rash, and discoloration. 21:06 Neck: Positive for pain with movement, Negative for bony tenderness. 21:06 Neuro: Positive for syncope, Negative for headache, numbness, seizure activity, tingling, weakness. Exam: 21:06 Constitutional: This is a well developed, well nourished patient who is awake, alert, pm1 and in no acute distress. 21:06 Neck: Trachea midline, no thyromegaly or masses palpated, and no cervical lymphadenopathy. Supple, full range of motion without nuchal rigidity, or vertebral point tenderness. No Meningismus. Chest/axilla: Normal chest wall appearance and motion. Nontender with no deformity. No lesions are appreciated. 21:06 Back: No spinal tenderness. No costovertebral tenderness. Full range of motion. 21:06 Skin: Warm, dry with normal turgor. Normal color with no rashes, no lesions, and no evidence of cellulitis. 21:06 MS/ Extremity: Pulses equal, no cyanosis. Neurovascular intact. Full, normal range of motion. 21:06 Head/face: Noted is no obvious of injury or deformity except contusion, that is superficial, of the right occipital area. 21:06 Cardiovascular: Exam negative for acute changes, Rate: normal, Rhythm: regular, Pulses: no pulse deficits are appreciated. 21:06 Respiratory: Exam negative for acute changes, respiratory distress, shortness of breath. 21:06 Abdomen/GI: Exam negative for acute changes, Inspection: abdomen appears normal, Palpation: abdomen is soft and non-tender, in all quadrants. 21:06 Neuro: Exam negative for acute changes, Orientation: is normal, Mentation: is normal, Motor: is normal, moves all fours, Sensation: is normal, no obvious gross deficits. Vital Signs: 20:53 BP 118 / 58 Supine; Pulse 127; Resp 18 S; Temp 97.6(TE); Pulse Ox 97% on R/A; Weight ca1 113.4 kg (R); Height 5 ft. 7 in. (170.18 cm) (R); 21:00 BP 115 / 74; Pulse 127; Resp 18; Pulse Ox 96% on R/A; lp1 21:36 BP 121 / 60; Pulse 108; Resp 19; Pulse Ox 97% on R/A; lp1 22:30 BP 121 / 54; Pulse 90; Resp 19; Pulse Ox 99% on R/A; Pain 0/10; lp1 23:30 BP 146 / 86; Pulse 88; Resp 14; Pulse Ox 99% on R/A; Pain 0/10; lp1 20:53 Body Mass Index 39.16 (113.40 kg, 170.18 cm) ca1 Vel Coma Score: 21:05 Eye Response: spontaneous(4). Verbal Response: oriented(5). Motor Response: obeys ca1 commands(6). Total: 15. MDM: 21:00 Patient medically screened. pm1 05/24 00:02 Data reviewed: vital signs. Data interpreted: Pulse oximetry: on room air is 99 %. pm1 Interpretation: normal. Counseling: I had a detailed discussion with the patient and/or guardian regarding: the historical points, exam findings, and any diagnostic results supporting the discharge/admit diagnosis, lab results, radiology results, the need for outpatient follow up, to return to the emergency department if symptoms worsen or persist or if there are any questions or concerns that arise at home. 05/23 21:01 Order name: Acetaminophen pm1 05/23 21:01 Order name: Basic Metabolic Panel pm1 05/23 21:01 Order name: CBC with Diff; Complete Time: 23:49 pm1 05/23 21:01 Order name: ETOH Level; Complete Time: 22:21 pm1 05/23 21:01 Order name: Hepatic Function pm1 05/23 21:01 Order name: PT-INR; Complete Time: 22:21 pm1 05/23 21:01 Order name: Ptt, Activated; Complete Time: 22:21 pm1 05/23 21:01 Order name: Salicylate; Complete Time: 23:04 pm1 05/23 21:01 Order name: Urine Drug Screen; Complete Time: 22:21 pm1 05/23 21:02 Order name: Acetaminophen Level; Complete Time: 23:04 EDMS 05/23 21:02 Order name: Basic Metabolic Panel; Complete Time: 23:04 EDMS 05/23 21:02 Order name: Liver (Hepatic) Function; Complete Time: 23:04 EDMS 05/23 21:37 Order name: Manual Differential; Complete Time: 23:49 EDMS 05/23 21:01 Order name: EKG; Complete Time: 21:02 pm1 05/23 21:01 Order name: EKG - Nurse/Tech; Complete Time: 21:25 pm1 05/23 21:01 Order name: IV Saline Lock; Complete Time: 21:25 pm1 05/23 21:01 Order name: Labs collected and sent; Complete Time: 21:25 pm1 05/23 21:01 Order name: Urine Dipstick-Ancillary (obtain specimen); Complete Time: 21:25 pm1 05/23 21:06 Order name: CT Head C Spine pm1 05/23 22:23 Order name: Chest Single View XRAY pm1 Administered Medications: 05/23 21:36 Drug: NS 0.9% 1000 ml Route: IV; Rate: 1000 ml; Site: right hand; lp1 22:45 Follow up: IV Status: Completed infusion; IV Intake: 1000ml lp1 22:33 Drug: NS 0.9% 1000 ml Route: IV; Rate: 1000 ml; Site: right hand; lp1 05/24 00:17 Follow up: IV Status: Completed infusion; IV Intake: 1000ml lp1 Disposition: 04:52 Co-signature as Attending Physician, Bob Reza MD I agree with the assessment and tw4 plan of care. Disposition: 05/24/20 00:05 Discharged to Home. Impression: Fall on same level, unspecified, Superficial injury of head, Syncope and collapse, Dehydration. - Condition is Stable. - Discharge Instructions: Dehydration, Adult, Head Injury, Adult, Syncope, Rehydration, Adult. - Medication Reconciliation Form, Thank You Letter, Antibiotic Education, Prescription Opioid Use form. - Follow up: Emergency Department; When: Upon discharge from the Emergency Department; Reason: Worsening of condition. Follow up: Private Physician; When: 2 - 3 days; Reason: Recheck today's complaints, Continuance of care, Re-evaluation by your physician. - Problem is new. - Symptoms have improved. Signatures: Dispatcher [employer] EDMI Anel Martínez, GABRIELLA RN lp1 Ari Moya, WEB PROGRAMMER-C WEB PROGRAMMER-Cla1 Maximino Jara, SHEET COMBINING OPERATOR SHEET COMBINING OPERATOR pm1 Bob Reza MD MD tw4 Jess Pina RN RN ca1 Corrections: (The following items were deleted from the chart) 05/23 21:16 21:02 Head Brain Wo Cont+CT.RAD.BRZ ordered. EDMI EDMI 05/24 00:05 00:05 05/24/2020 00:05 Discharged to Home. Impression: Fall on same level, unspecified; pm1 Superficial injury of head. Condition is Stable. Forms are Medication Reconciliation Form, Thank You Letter, Antibiotic Education, Prescription Opioid Use. Follow up: Emergency Department; When: Upon discharge from the Emergency Department; Reason: Worsening of condition. Follow up: Private Physician; When: 2 - 3 days; Reason: Recheck today's complaints, Continuance of care, Re-evaluation by your physician. Problem is new. Symptoms have improved. pm1 00:06 00:05 05/24/2020 00:05 Discharged to Home. Impression: Fall on same level, unspecified; pm1 Superficial injury of head; Syncope and collapse. Condition is Stable. Forms are Medication Reconciliation Form, Thank You Letter, Antibiotic Education, Prescription Opioid Use. Follow up: Emergency Department; When: Upon discharge from the Emergency Department; Reason: Worsening of condition. Follow up: Private Physician; When: 2 - 3 days; Reason: Recheck today's complaints, Continuance of care, Re-evaluation by your physician. Problem is new. Symptoms have improved. pm1 00:18 00:06 05/24/2020 00:05 Discharged to Home. Impression: Fall on same level, unspecified; lp1 Superficial injury of head; Syncope and collapse; Dehydration. Condition is Stable. Discharge Instructions: Head Injury, Adult, Syncope. Forms are Medication Reconciliation Form, Thank You Letter, Antibiotic Education, Prescription Opioid Use. Follow up: Emergency Department; When: Upon discharge from the Emergency Department; Reason: Worsening of condition. Follow up: Private Physician; When: 2 - 3 days; Reason: Recheck today's complaints, Continuance of care, Re-evaluation by your physician. Problem is new. Symptoms have improved. pm1
[2020-05-24 02:58] VITALS: TEMP 97.6
[2020-05-24 03:12] VITALS: O2SAT 99
[2020-05-24 03:13] VITALS: BP 146/86
--- NOTE | 2020-05-24 13:38 | RAD REPORT ---
EXAM DESCRIPTION: 1. CT of the head without contrast 2. CT of the cervical spine without contrast. CLINICAL HISTORY: Seizure, pain COMPARISON: 12/02/2019 TECHNIQUE: Axial CT of the head obtained from the skull apex to the skull base without contrast. Axi al CT images of the cervical spine obtained from the skull base through the thoracic inlet. Sagittal and coronal reformatted images available. This exam was performed according to our departmental dose- optimization program, which includes automated exposure control, adjustment of the mA and/or kV accor ding to patient size and/or use of iterative reconstruction technique. FINDINGS: CT head: No acute intracranial hemorrhage identified. No mass effect, shift of the midline, abnormal extra-axi al fluid collection or CT evidence of acute ischemic change identified. The ventricular system is unr emarkable. No acute abnormalities of the supratentorial white matter, basal ganglia, cerebellum, or brainstem. Stable 6 mm midline lipoma. The visualized paranasal sinuses and the mastoids are clear. No skull fracture identified. Visualized orbits and globes are unremarkable. Cervical CT: Straightening of the cervical lordosis may be secondary to patient positioning. The atlantoaxial, a tlantodental, and occipitoatlantal intervals are preserved. No fracture identified. Vertebral body height preserved. Prevertebral soft tissues are unremarkable. Intervertebral disc height preserved. Visualized skull base is intact. No fracture of the visualized facial bones. Visualized mastoid air c ells and paranasal sinuses are well aerated. Visualized thyroid is unremarkable. No cervical lymphadenopathy. No pneumothorax in the visualized lung apices. IMPRESSION: 1. No acute intracranial abnormality. 2. No acute fracture or subluxation of the cervical spine. Electronically signed by: Cedrick Cisse 05/23/2020 10:11 PM CDT Due to temporary technical issues with the PACS/Fluency reporting system, reports are being signed by the in house radiologists without review as a courtesy to insure prompt reporting. The interpreting radiologist is fully responsible for the content of the report.
--- NOTE | 2020-05-24 13:40 | RAD REPORT ---
EXAM DESCRIPTION: Chest Single View 05/23/2020 11:15 PM CDT CLINICAL HISTORY: 35 years, Male, seizure COMPARISON: None. FINDINGS: Single view of the chest was obtained portable. No prior films are available for compariso n. The lung volume is decreased. The heart is prominent. The pulmonary vasculature is normal distri bution. The thoracic aorta is unremarkable.. Costophrenic angles are sharp. No areas of consolida tion or masses are seen. The rest of the soft tissue and bony structures demonstrate to be unremark able. IMPRESSION: Low lung volume. Cardiomegaly. No focal areas of acute airspace disease. Electronically signed by: Homero Vázquez MD 05/23/2020 11:15 PM CDT Due to temporary technical issues with the PACS/Fluency reporting system, reports are being signed by the in house radiologists without review as a courtesy to insure prompt reporting. The interpreting radiologist is fully responsible for the content of the report.
[2020-05-27 14:30] LABS: Urine Blood 1+ (Negative); Urine Glucose Negative (Negative); Urine Protein 2+ (Negative); Urine Specific Gravity >=1.030 (1.005-1.030); Urine pH 5.5 (5.0-7.0)
== END 2020-05-24 00:18 | disposition home or self-care (01) ==
LOC: ER 20:34
DX: E86.0 Dehydration (principal); S00.83XA Contusion of other part of head, initial encounter; W18.30XA Fall on same level, unspecified, initial encounter; Y93.9 Activity, unspecified; Y92.9 Unspecified place or not applicable; Z88.6 Allergy status to analgesic agent; I10 Essential (primary) hypertension
CPT/HCPCS: 96361; 93005; 85025; 80048; 36415; 80320; 80329 ×2; 85610; 80076; 80307 ×8; 85730; 70450; 72125; 71045; 96360; 99284; J7030 ×2; 81003